=== PATIENT | male | born 2000 | race Caucasian/White ===

== ENCOUNTER 2022-07-08 11:14 | Emergency (ER) | payer BC, SELFPAY ==
[2022-07-08 11:21] VITALS: BP 112/78; PULSE 81; RESP 16; TEMP 36.4; O2SAT 97; BMI 22.9
--- NOTE | 2022-07-08 11:39 | CRLHL7_ITS ---
For Patients: As a result of the Cures Act, medical imaging exams and procedure reports are released immediately into your electronic medical record. You may view this report before your referring provider. If you have questions, please contact your health care provider. INDICATION: Pain. FINDINGS: Three views of the left foot show no evidence of acute fracture or dislocation. No other bony or soft tissue abnormalities identified. Dictated by Bienvenido Kelley MD @ 07/08/2022 12:32:47 PM Dictated by: Bienvenido Kelley MD @ 07/08/2022 12:32:57 (Electronically Signed)
--- NOTE | 2022-07-08 12:16 | ED_ITS ---
HPI - General Adult General Chief complaint: Extremity Pain/Injury, Lower Stated complaint: LT ANKLE & top of foot pain Time Seen by Provider: 07/08/22 11:35 Source: patient Mode of arrival: wheelchair Limitations: no limitations History of Present Illness HPI narrative: 22-year-old male coming in today complaining of a left foot pain. States that he rolled his ankle yesterday and now his foot hurts to the point where he was unable to ambulate today. He did not fall or hit his head. Pain is located on the lateral foot or he complains of swelling and tenderness. Related Data Home Medications Medication Instructions Recorded Confirmed adapalene-benzoyl peroxide 1 applic topical DAILY 07/08/22 07/08/22 Allergies Allergy/AdvReac Type Severity Reaction Status Date / Time No Known Drug Allergies Allergy Verified 07/08/22 11:26 Review of Systems Status of ROS: Reports: 6 or more systems reviewed and unremarkable except as noted in History and below PFSH [facility] Social History Smoking Status: Never smoker Do you use any of these nicotine containing products: None How often do you have a drink containing alcohol: never AUDIT-C Alcohol total score: 0 Non-prescribed substance use: denies use Exam Narrative: Exam Narrative: Well-nourished well-developed patient in no acute distress. Alert and oriented. Answers questions appropriately. Mood and affect are appropriate. Thoughts are goal oriented and rational. No tangential or magical thinking noted. Patient speaks in full sentences without needing to catch his breath. HEENT: Normocephalic atraumatic. Pupils are equally round reactive to light. Extraocular muscles are intact. Conjunctivae are moist without any icterus noted. Extremities: Patient has swelling over the lateral left foot just proximal to the ankle. He has tenderness to palpation in that area. He has no tenderness over the Achilles or heel. The remainder of the foot is nontender. He has no tenderness with range of motion at the ankle including flexion , extension, eversion and inversion. Const: Vital Signs, click to edit/add: Vital Signs - 24 hr 07/08/22 11:21 Temperature 97.5 F L Pulse Rate [Left P ulse Oximeter] 81 Respiratory Rate 16 Blood Pressure [Le ft Upper Arm] 112/78 Pulse Oximetry 97 Oxygen Delivery Me thod Room Air Course Course Hospital Course: X-ray of the foot was done, read by me, shows no acute pathology. Vital Signs Vital signs: Initial Vital Signs Temperature 97.5 F L 07/08/22 11:21 Temperature Source Temporal Artery Scan 07/08/22 11:21 Pulse Rate 81 07/08/22 11:21 Respiratory Rate 16 07/08/22 11:21 Blood Pressure 112/78 07/08/22 11:21 Blood Pressure Mean 89 07/08/22 11:21 Blood Pressure Position Sitting 07/08/22 11:21 Pulse Oximetry 97 07/08/22 11:21 Oxygen Delivery Method 07/08/22 11:21 Vital Signs Temperature 97.5 F L 07/08/22 11:21 Pulse Rate 81 07/08/22 11:21 Respiratory Rate 16 07/08/22 11:21 Blood Pressure 112/78 07/08/22 11:21 Pulse Oximetry 97 07/08/22 11:21 Oxygen Delivery Method 07/08/22 11:21 Temperature 97.5 F L 07/08/22 11:21 Pulse Rate 81 07/08/22 11:21 Respiratory Rate 16 07/08/22 11:21 Blood Pressure 112/78 07/08/22 11:21 Pulse Oximetry 97 07/08/22 11:21 Oxygen Delivery Method 07/08/22 11:21 Medical Decision Making MDM Narrative Medical decision making narrative: Ankle sprain. We discussed symptomatic treatment and follow-up as needed. Patient will be placed in a air cast for support. Imaging Data foot xray: Attestation: I have reviewed the pertinent imaging results. Radiologist's impression: INDICATION: Pain. FINDINGS: Three views of the left foot show no evidence of acute fracture or dislocation. No other bony or soft tissue abnormalities identified. Discharge Plan Discharge Clinical Impression: Ankle sprain and strain Patient Disposition: Home, Self-Care Condition: Stable Additional Instructions: Elevate foot throughout the day as much as possible. Activity as tolerated. Okay to use ibuprofen or Tylenol as needed for discomfort. Follow-up with your primary care provider if you feel like you are not improving. Prescriptions: No Action adapalene-benzoyl peroxide [Epiduo Forte] 1 applic topical DAILY Follow Up/Referrals: Fito Hoyt MD [Primary Care Provider] - Stand Alone Forms: [employer] Info Instructions
== END 2022-07-08 12:52 | disposition home or self-care (01) ==
PROVIDERS: Emergency Provider Family Medicine
DX: S93.402A Sprain of unspecified ligament of left ankle, initial encounter (principal)
CPT/HCPCS: 73630; 99283; 99284